=== PATIENT | male | born 1995 | race Caucasian/White ===

== ENCOUNTER 2018-09-28 13:23 | Inpatient (IN) | payer MEDICAID ==
[~2018-09-28] VITALS: Ht 175.3 cm; Wt 67.0 kg
[~2018-09-28 13:23] MED LIST: AMOX-580 PO; INSU100V36 SQ; LACTC PO; LAMO25TA5 PO; LANTUS SUBCUT; LORA2TAB96 PO; TRAZ150T78 PO; VENL37.589 PO; VENL75TA90 PO
[2018-09-28] MEDS ORDERED: normal saline 1000ml 1,000 ML IV ONE (13:45)
[2018-09-28] MEDS ORDERED: INSU100V9 SQ (14:05)
[2018-09-28] MEDS: normal saline 1000ml 1,000 ML IV SCH (14:08)
[2018-09-28] MEDS ORDERED: acetaminophen 325mg tablet PO PRN ×2 (14:10)
[2018-09-28] MEDS ORDERED: potassium Cl 20 mEq SR tablet PO PRN ×2 (14:10)
[2018-09-28] MEDS ORDERED: magnesium 4gm in 100ml NS 100 ML IV PRN (14:10)
[2018-09-28] MEDS ORDERED: ondansetron/PF 4mg/2ml inj IV PRN (14:10)
[2018-09-28] MEDS ORDERED: potassium Cl 40MEQ/NS 500ml 500 ML IV PRN (14:10)
[2018-09-28] MEDS ORDERED: magnesium 2GM in 50ml NS 50 ML IV PRN (14:10)
[2018-09-28] MEDS ORDERED: magnesium Cl slow-release 64mg tablet PO PRN (14:10)
[2018-09-28] MEDS ORDERED: MESSAGE TO PHARMACY PO ONE ×2 (14:10→16:05)
[2018-09-28] MEDS ORDERED: magnesium hydroxide 30ml (MOM) UD suspension PO PRN (14:10)
[2018-09-28] MEDS ORDERED: mag hydrox/Alum hydrox/simeth 30ml oral suspension PO PRN (14:10)
[2018-09-28] MEDS ORDERED: normal saline 1000ml 1,000 ML IVB ONE ×2 (14:17→16:03)
[2018-09-28 15:18] LABS: CLARITY,URINE CLEAR (Clear); COLOR,URINE YELLOW (Yellow); GLUCOSE, URINE 500 mg/dl (Neg); KETONES,URINE >=80 mg/dl (Neg); LEUKOCYTE ESTERASE ,URINE NEGATIVE (Neg); NITRITES, URINE NEGATIVE (Neg); OCCULT BLOOD,URINE TRACE-INTACT (Neg); PROTEIN,URINE TRACE mg/dl (Neg); UROBILINOGEN,URINE 0.2 E.U/dL (0.2-1.0)
[2018-09-28 15:21] LABS: UA COLLECTION TYPE CLN CATCH MIDSTREAM
[2018-09-28 15:23] LABS: BACTERIA,URINE NONE SEEN /HPF (Neg); RBC,URINE 0-2 /HPF (0-2); SQUAMOUS EPITHELIAL CELL,UR FEW /LPF (FEW); WBC,URINE 0-4 /HPF (0-4)
[2018-09-28 15:28] VITALS: BP 153/90
--- NOTE | 2018-09-28 15:28 | NUR ---
Patient on the unit, Dr. Lau at bedside.
[2018-09-28 15:30] LABS: MUCUS STRANDS NONE SEEN /LPF (Neg); TRANSITIONAL EPI CELLS,URINE FEW /HPF
[2018-09-28] MEDS ORDERED: normal saline 1000ml 1,000 ML IV SCH (15:38)
[2018-09-28 15:43] VITALS: BP 145/59
--- NOTE | 2018-09-28 16:00 | NUR ---
Bladder scanned 462. Pt voided 250 afterwards.
[2018-09-28] MEDS ORDERED: dextrose 50%-water 50ml dispensing syringe IV PRN ×2 (16:05)
[2018-09-28] MEDS ORDERED: glucagon, human recombinant 1mg kit SUBCUT PRN (16:05)
[2018-09-28] MEDS ORDERED: CefTRIAXone/D5W-Rocephin 1gm 50 ML IV ONE (16:05)
[2018-09-28] MEDS ORDERED: dextrose ORAL solution 15 GM/59 ML bottle PO PRN ×2 (16:05)
[2018-09-28] MEDS ORDERED: proMETHazine 25mg tablet PO PRN (16:15)
[2018-09-28 16:59] LABS: BASOPHILS % (AUTO) 0.2 % (0-1); EOSINOPHILS % (AUTO) 0 % (0-6); HEMATOCRIT 39.7 % (42.0-52.0); HEMOGLOBIN 13.3 g/dl (14.0-17.9); LYMPHOCYTES # (AUTO) 0.9 X10'3 (1.1-4.8); LYMPHOCYTES % (AUTO) 5.9 % (21-51); MEAN CORPUSCULAR HEMOGLOBIN 28.1 PG (27.0-31.0); MEAN CORPUSCULAR HGB CONC 33.5 g/dL (33.0-36.5); MEAN CORPUSCULAR VOLUME 83.9 FL (78-98); MEAN PLATELET VOLUME 9.1 FL (7.4-10.4); MONOCYTES # (AUTO) 1.6 X10'3 (0-0.9); MONOCYTES % (AUTO) 10.1 % (2-12); NEUTROPHILS # (AUTO) 12.9 X10'3 (1.8-7.7); NEUTROPHILS % (AUTO) 83.8 % (42-75); PLATELET COUNT 245 X10'3 (140-440); RED BLOOD COUNT 4.73 X10'6 (4.70-6.10); WHITE BLOOD COUNT 15.4 X10'3 (4.5-11.0)
[2018-09-28] MEDS ORDERED: thiamine inj. 100 MG in normal saline 100ml IV soln 100 ML IV SCH (17:00)
[2018-09-28] MEDS ORDERED: magnesium 2GM in 50ml NS 50 ML IV SCH (17:00)
--- NOTE | 2018-09-28 17:00 | NUR ---
pt bladder scanned again. 524 in shown bladder. pt. voided 350 ml afterwards.
[2018-09-28] MEDS: proCHLORperazine 10 MG/2 ml inj IV PRN (17:04)
[2018-09-28 17:07] LABS: ALBUMIN 3.6 G/DL (3.4-5.0); ANION GAP 13 (8-16); BLOOD UREA NITROGEN 26 MG/DL (7-18); BUN/CREATININE RATIO 23.2 (5.4-32.0); CHLORIDE 99 MMOL/L (99-107); CREATININE 1.12 MG/DL (0.60-1.10); GLUCOSE 350 MG/DL (70-104); LIPASE < 50 U/L (73-393); POTASSIUM 3.6 MMOL/L (3.5-5.1); SODIUM 140 MMOL/L (135-145); TOTAL CARBON DIOXIDE 28.1 MMOL/L (24-32); eGFR 81 ML/MIN
[2018-09-28] MEDS ORDERED: insulin glargine (Lantus) pen - multi-dose SQ ONE ×3 (19:05→19:50)
--- NOTE | 2018-09-28 19:11 | NUR ---
Patient in room [facility]. I have received report from Sharda PROCTOR and had the opportunity to ask questions and assume patient care.
[2018-09-28] MEDS: LORazepam 2 mg/ml vial IV PRN (19:47)
[2018-09-28 20:00] VITALS: BP 125/56
[2018-09-28 20:14] LABS: MAGNESIUM 1.7 MG/DL (1.5-2.4)
[2018-09-28] MEDS ORDERED: ESOMEPRAZOLE 40 MG VIAL IV SCH (20:22)
[2018-09-28] MEDS ORDERED: insulin glargine (Lantus) pen - multi-dose SQ SCH (21:00)
[2018-09-28] MEDS: insulin Lispro (HumaLOG) vial - multi-dose SQ SCH ×2 (21:41→23:27)
[2018-09-28] MEDS: MVI, adult No.4 with vit. K 10 ML in dextrose 5% water 500ml 490 ML IV SCH ×2 (22:51)
[2018-09-29] MEDS: normal saline 1000ml 1,000 ML IV SCH ×3 (00:45→10:45)
[2018-09-29 00:58] VITALS: BP 113/67
[2018-09-29 01:14] LABS: ALBUMIN 3.2 G/DL (3.4-5.0); ANION GAP 11 (8-16); BLOOD UREA NITROGEN 19 MG/DL (7-18); BUN/CREATININE RATIO 19.6 (5.4-32.0); CALCIUM 7.4 MG/DL (8.5-10.1); CHLORIDE 103 MMOL/L (99-107); CREATININE 0.97 MG/DL (0.60-1.10); GLUCOSE 305 MG/DL (70-104); MAGNESIUM 1.9 MG/DL (1.5-2.4); PHOSPHORUS 2.4 MG/DL (2.3-4.5); POTASSIUM 3.5 MMOL/L (3.5-5.1); SODIUM 142 MMOL/L (135-145); TOTAL CARBON DIOXIDE 27.9 MMOL/L (24-32); eGFR > 90 ML/MIN
[2018-09-29] MEDS: insulin Lispro (HumaLOG) vial - multi-dose SQ SCH ×7 (02:06→20:50)
[2018-09-29] MEDS: proCHLORperazine 10 MG/2 ml inj IV PRN (02:07)
--- NOTE | 2018-09-29 04:26 | NUR ---
Pt Magnesium at admit was 1.7, repeat Magnesium at 0000 was 1[address]9. Paged [address] Martin regarding whether or not to administer with no response. Discussed ordered magnesium replacement order that was non-protocol with charge nurse. Medication not administered due to magnesium level being within limits.
[2018-09-29 06:10] LABS: BASOPHILS % (AUTO) 0.2 % (0-1); EOSINOPHILS % (AUTO) 0 % (0-6); HEMATOCRIT 35.3 % (42.0-52.0); HEMOGLOBIN 12.1 g/dl (14.0-17.9); LYMPHOCYTES # (AUTO) 1.1 X10'3 (1.1-4.8); LYMPHOCYTES % (AUTO) 9.5 % (21-51); MEAN CORPUSCULAR HEMOGLOBIN 28.6 PG (27.0-31.0); MEAN CORPUSCULAR HGB CONC 34.3 g/dL (33.0-36.5); MEAN CORPUSCULAR VOLUME 83.4 FL (78-98); MEAN PLATELET VOLUME 8.9 FL (7.4-10.4); MONOCYTES # (AUTO) 1.5 X10'3 (0-0.9); MONOCYTES % (AUTO) 13.1 % (2-12); NEUTROPHILS # (AUTO) 8.9 X10'3 (1.8-7.7); NEUTROPHILS % (AUTO) 77.2 % (42-75); PLATELET COUNT 217 X10'3 (140-440); RED BLOOD COUNT 4.23 X10'6 (4.70-6.10); RED CELL DISTRIBUTION WIDTH 13.6 % (11.5-14.5); WHITE BLOOD COUNT 11.5 X10'3 (4.5-11.0)
--- NOTE | 2018-09-29 06:16 | NUR ---
Problems reprioritized. Patient report given, questions answered & plan of care reviewed with Zo PROCTOR.
--- NOTE | 2018-09-29 06:18 | NUR ---
Patient in room [facility]. I have received report from Monika PROCTOR and had the opportunity to ask questions and assume patient care.
[2018-09-29 06:24] LABS: ALBUMIN 3.1 G/DL (3.4-5.0); ANION GAP 10 (8-16); BLOOD UREA NITROGEN 16 MG/DL (7-18); BUN/CREATININE RATIO 18.2 (5.4-32.0); CALCIUM 7.8 MG/DL (8.5-10.1); CHLORIDE 104 MMOL/L (99-107); CREATININE 0.88 MG/DL (0.60-1.10); GLUCOSE 236 MG/DL (70-104); MAGNESIUM 2.1 MG/DL (1.5-2.4); PHOSPHORUS 1.9 MG/DL (2.3-4.5); POTASSIUM 3.4 MMOL/L (3.5-5.1); SODIUM 141 MMOL/L (135-145); TOTAL CARBON DIOXIDE 27.2 MMOL/L (24-32); eGFR > 90 ML/MIN
[2018-09-29 07:00] VITALS: BP 134/77
[2018-09-29 08:00] VITALS: BP_SYST 134; BP_SYST 139; BP_SYST 141; BP_DIAS 77; BP_DIAS 85; BP_DIAS 88
[2018-09-29] MEDS: K and/or MAG REPLACEMENT MC SCH (08:00)
[2018-09-29] MEDS: LORazepam 2 mg/ml vial IV PRN (08:12)
[2018-09-29] MEDS: ESOMEPRAZOLE 40 MG VIAL IV SCH ×2 (08:18→20:55)
[2018-09-29] MEDS: CefTRIAXone 2gm/D5W 50ml 50 ML IV SCH (08:31)
[2018-09-29] MEDS: enoxaparin 40mg/0.4ml syringe SQ SCH (08:31)
[2018-09-29] MEDS: potassium CL 10mEq/100ml bag 100 ML IV PRN ×4 (09:04→13:32)
[2018-09-29] MEDS ORDERED: sodium phosphate inj. 30 MMOL in dextrose 5%-water 250 ML IV ONE (10:15)
[2018-09-29 11:00] VITALS: BP 150/83
[2018-09-29] MEDS ORDERED: LORazepam 2 mg/ml vial IV PRN (12:25)
[2018-09-29] MEDS ORDERED: HYDROcodone/acetaminophen 5mg/325mg tablet PO PRN (12:25)
[2018-09-29] MEDS: HYDROcodone/acetaminophen 10/325mg tab PO PRN ×2 (12:33→17:45)
--- NOTE | 2018-09-29 14:02 | NUR ---
DM/Malnutrition consults: Pt admit w/ severe dehydration, intractable N/V, possibly DM gastroparesis and infection per MD note. Noted pt does use marijuana daily; unsure if also synthetic cannabinoid hyperemesis influence as well? Pt hx T1DM since 9 y/o non-compliant A1C 11.4. Pt also hx pancreatitis but lipase <50 this admit. Still experiencing N/V today per EMR. Pt will need written DM education prior to d/c once stable. At this time pt has no significant wt loss hx from prior admit February 2018, no significant weakness or edema present and does not qualify for malnutrition at this time. Advanced to clear liquids w/ PO pending. Will continue to monitor. Rec: 1. advance diet per MD to carb controlled 2. MVI/thiamin per MD 3. DM ed once stable prior to d/c 4. weekly wts Addendum: 09/29/18 at [address] Amended: Links added.
[2018-09-29] MEDS: MVI, adult No.4 with vit. K 10 ML in dextrose 5% water 500ml 490 ML IV SCH ×2 (17:35)
--- NOTE | 2018-09-29 18:45 | NUR ---
Problems reprioritized. Patient report given, questions answered & plan of care reviewed with CULLEN ward.
[2018-09-29 20:00] VITALS: BP 139/81
[2018-09-29] MEDS: lactobacillus rhamnosus 10,000 MMU CELLS/CAPSULE PO SCH (20:55)
[2018-09-29] MEDS ORDERED: insulin glargine (Lantus) pen - multi-dose SQ ONE (21:00)
[2018-09-30 00:23] VITALS: BP 143/88
[2018-09-30] MEDS: normal saline 1000ml 1,000 ML IV SCH ×2 (00:37→11:50)
[2018-09-30] MEDS: HYDROcodone/acetaminophen 10/325mg tab PO PRN ×2 (04:29→11:46)
[2018-09-30 04:56] LABS: BASOPHILS % (AUTO) 0.6 % (0-1); EOSINOPHILS % (AUTO) 0.4 % (0-6); HEMATOCRIT 39.5 % (42.0-52.0); HEMOGLOBIN 13.3 g/dl (14.0-17.9); LYMPHOCYTES # (AUTO) 2.2 X10'3 (1.1-4.8); LYMPHOCYTES % (AUTO) 29.2 % (21-51); MEAN CORPUSCULAR HEMOGLOBIN 28.2 PG (27.0-31.0); MEAN CORPUSCULAR HGB CONC 33.6 g/dL (33.0-36.5); MEAN CORPUSCULAR VOLUME 83.8 FL (78-98); MEAN PLATELET VOLUME 8.9 FL (7.4-10.4); MONOCYTES # (AUTO) 1.1 X10'3 (0-0.9); MONOCYTES % (AUTO) 14.1 % (2-12); NEUTROPHILS # (AUTO) 4.2 X10'3 (1.8-7.7); NEUTROPHILS % (AUTO) 55.7 % (42-75); PLATELET COUNT 218 X10'3 (140-440); RED BLOOD COUNT 4.72 X10'6 (4.70-6.10); RED CELL DISTRIBUTION WIDTH 13.3 % (11.5-14.5); WHITE BLOOD COUNT 7.5 X10'3 (4.5-11.0)
[2018-09-30 05:20] LABS: ALBUMIN 3.3 G/DL (3.4-5.0); ANION GAP 11 (8-16); BLOOD UREA NITROGEN 9 MG/DL (7-18); BUN/CREATININE RATIO 12.7 (5.4-32.0); CALCIUM 8.3 MG/DL (8.5-10.1); CHLORIDE 100 MMOL/L (99-107); CREATININE 0.71 MG/DL (0.60-1.10); GLUCOSE 197 MG/DL (70-104); PHOSPHORUS 1.7 MG/DL (2.3-4.5); POTASSIUM 3.6 MMOL/L (3.5-5.1); SODIUM 136 MMOL/L (135-145); eGFR > 90 ML/MIN
--- NOTE | 2018-09-30 06:23 | NUR ---
Problems reprioritized. Patient report given, questions answered & plan of care reviewed with Maria G PROCTOR.
--- NOTE | 2018-09-30 06:38 | NUR ---
Patient in room [facility]. I have received report from Monika PROCTOR and had the opportunity to ask questions and assume patient care.
[2018-09-30 07:02] VITALS: BP 143/93
[2018-09-30] MEDS: K and/or MAG REPLACEMENT MC SCH (08:00)
[2018-09-30] MEDS: ESOMEPRAZOLE 40 MG VIAL IV SCH (08:29)
[2018-09-30] MEDS: CefTRIAXone 2gm/D5W 50ml 50 ML IV SCH (08:31)
[2018-09-30] MEDS: lactobacillus rhamnosus 10,000 MMU CELLS/CAPSULE PO SCH (08:31)
[2018-09-30] MEDS: enoxaparin 40mg/0.4ml syringe SQ SCH (08:32)
[2018-09-30] MEDS: insulin Lispro (HumaLOG) vial - multi-dose SQ SCH ×2 (08:44→12:56)
[2018-09-30 11:00] VITALS: BP 143/79
[2018-09-30] MEDS: MVI, adult No.4 with vit. K 10 ML in dextrose 5% water 500ml 490 ML IV SCH ×2 (15:23)
--- NOTE | 2018-09-30 16:03 | NUR ---
DM consult, A1c 11.4 previous A1C in February 2018 was 8.3; patient seen at bedside and given written DM education handout with verbal review and referral to outpatient Saturday morning DM education class. Patient reports that he lives in [place] and is working with his PCP to gain referral to an cookie breaker in the [facility]. Discussed current A1c and A1c history. Encouraged attendance to the DM education class. Patient reports that he was having difficulty last fall and has since started seeing a psychiatrist for mental health. Will continue to follow. Addendum: 09/30/18 at [address] Amended: Links added.
[2018-09-30] MEDS ORDERED: MULT1TAB74 PO (16:35)
[2018-09-30] MEDS ORDERED: LACT1CAP26 PO (16:37)
[2018-09-30] MEDS ORDERED: FAMO-128 PO (16:37)
[2018-09-30] MEDS ORDERED: INSU100V9 SQ (16:37)
[2018-09-30] MEDS ORDERED: CEFD300C3 PO (16:37)
--- NOTE | 2018-09-30 17:29 | NUR ---
Patient discharged on nursing end. Waiting on ride. Patient is requesting a work release note, lyric GUTHRIE.
== END 2018-09-30 18:00 | disposition home or self-care (01) | DRG 422 ==
LOC: ER 13:24 → SUR 3N 14:43 → CMPBEDREQ 09-29 19:40
PROVIDERS: ADMIT Hospitalist; ATTEND Hospitalist
DX: E86.0 Dehydration (principal); E10.65 Type 1 diabetes mellitus with hyperglycemia; E83.39 Other disorders of phosphorus metabolism; E87.6 Hypokalemia; F12.90 Cannabis use, unspecified, uncomplicated; F41.9 Anxiety disorder, unspecified; F17.210 Nicotine dependence, cigarettes, uncomplicated; F32.9 Major depressive disorder, single episode, unspecified; R19.7 Diarrhea, unspecified; Z83.3 Family history of diabetes mellitus; Z90.49 Acquired absence of other specified parts of digestive tract; Z88.8 Allergy status to other drugs, medicaments and biological substances; Z71.51 Drug abuse counseling and surveillance of drug abuser
CPT/HCPCS: 36415; 80048; 81001; 82948; 83036; 83605; 83690; 83735; 84100; 85025; 87040; 87070; 96360; 99285; G0378; J0696; J0780; J1650; J1815; J2060; J2405; J3411; J3475; J3480; J7030; J7060

== ENCOUNTER 2019-11-04 02:09 | Inpatient (IN) | payer MEDICAID ==
[2019-11-04] VITALS (7 sets, daily range): BP systolic 99–155; BP diastolic 51–86
[~2019-11-04] VITALS: Ht 185.4 cm; Wt 68.2 kg
[~2019-11-04 02:09] MED LIST changes: -AMOX-580 PO; +ARIP10TA15 PO; +ATOM25CA6 PO; +CLON-527 PO; +FAMO-128 PO; +HYDR-3686 PO; +INSU100V9 SQ; +LACT1CAP26 PO; -LACTC PO; -LAMO25TA5 PO; -LANTUS SUBCUT; -LORA2TAB96 PO; +MULT-620 PO; -TRAZ150T78 PO; -VENL37.589 PO; -VENL75TA90 PO; +ZOLP10TA PO; +ZOLP5TAB8 PO
[2019-11-04] MEDS ORDERED: normal saline 1000ml 1,000 ML IV SCH (02:16)
[2019-11-04] MEDS ORDERED: sodium bicarbonate (8.4%) inj. 50 MEQ in dextrose 5% water 500ml 250 ML IV PRN ×2 (02:16→02:50)
[2019-11-04] MEDS ORDERED: Insulin Reg/NS 100units/100mL 100 ML IV SCH ×5 (02:16→20:43)
[2019-11-04] MEDS ORDERED: sodium bicarbonate (8.4%) inj. 100 MEQ in dextrose 5% water 500ml 500 ML IV PRN ×2 (02:16→02:50)
[2019-11-04] MEDS ORDERED: potassium CL 20mEq in D5-1/2NS 1,000 ML IV PRN (02:16)
[2019-11-04] MEDS ORDERED: Neutra Phos packet PO PRN (02:20)
[2019-11-04] MEDS ORDERED: sodium phosphate inj. 30 MMOL in dextrose 5%-water 250 ML IV PRN (02:20)
[2019-11-04] MEDS ORDERED: potassium CL 10mEq/100ml bag 100 ML IV PRN ×4 (02:20→02:50)
[2019-11-04] MEDS ORDERED: LORazepam 2 mg/ml vial IV ONE (02:20)
[2019-11-04] MEDS ORDERED: sodium phosphate inj. 15 MMOL in dextrose 5%-water 250 ML IV PRN (02:20)
[2019-11-04] MEDS ORDERED: haloperidol lactate 5mg/ml inj IM ONE (02:20)
[2019-11-04] MEDS ORDERED: diphenhydrAMINE 50 mg/ml inj IV ONE (02:20)
[2019-11-04] MEDS ORDERED: insulin regular, human U-100 3ml vial - multi-dose IV PRN ×2 (02:20→02:50)
[2019-11-04] MEDS ORDERED: potassium Cl 20 mEq SR tablet PO PRN ×4 (02:20→02:50)
[2019-11-04 02:35] LABS: ABG BASE EXCESS -3.1 mmol/L (-2.0-2.0); ABG HCO3 21.5 mmol/L (22.0-26.0); ABG OXYGEN SATURATION 90.3 % (94-97); ABG PCO2 (T) 36.8 mmHg (35.0-48.0); ABG PO2 (T) 61.5 mmHg (75.0-100.0); FCOHb 0.4 % (0.0-3.9); FMetHb 0.3 % (0.0-1.5); FO2Hb 89.7 % (94-97); PATIENT TEMPERATURE 36.9; TOTAL HEMOGLOBIN 13.9 G/dl (14.0-18.0)
[2019-11-04] MEDS ORDERED: magnesium Cl slow-release 64mg tablet PO PRN (02:50)
[2019-11-04] MEDS: normal saline 1000ml 1,000 ML IV SCH ×4 (02:50→06:26)
[2019-11-04] MEDS ORDERED: acetaminophen 325mg tablet PO PRN (02:50)
[2019-11-04] MEDS ORDERED: magnesium 4gm in 100ml NS 100 ML IV PRN (02:50)
[2019-11-04] MEDS ORDERED: magnesium 2GM in 50ml NS 50 ML IV PRN (02:50)
[2019-11-04] MEDS ORDERED: magnesium hydroxide 30ml (MOM) UD suspension PO PRN (02:50)
[2019-11-04] MEDS ORDERED: mag hydrox/Alum hydrox/simeth 30ml oral suspension PO PRN (02:50)
[2019-11-04 02:52] LABS: ALBUMIN 3.8 G/DL (3.4-5.0); ANION GAP 18 (8-16); BLOOD UREA NITROGEN 24 MG/DL (7-18); BUN/CREATININE RATIO 15.4 (5.4-32.0); CHLORIDE 104 MMOL/L (99-107); CREATININE 1.56 MG/DL (0.60-1.10); GLUCOSE 342 MG/DL (70-104); PHOSPHORUS 2.7 MG/DL (2.3-4.5); SODIUM 147 MMOL/L (135-145); TOTAL CARBON DIOXIDE 24.7 MMOL/L (24-32); eGFR 54 ML/MIN
--- NOTE | 2019-11-04 04:28 | NUR ---
Patient in room ED 4. I have received report from Charito PROCTOR and had the opportunity to ask questions and assume patient care. Addendum: 11/04/19 at 0428 by Sharee Vick RN Awaiting arrival of patient to the PCU unit.
--- NOTE | 2019-11-04 04:40 | NUR ---
Patient arrived to the PCU unit at this time from the ER. He is very drowsy from the Benadryl and Ativan that he received in the ER. He is oriented but keeps falling asleep and must be aroused between questions and gives minimal answers. His vitals are stable. He is on room air. He currently has an insulin drip going at 5units/hr and NS going at 250mls/hr. He has his call light in reach and all safety precautions are in place. Will continue to monitor patient.
[2019-11-04] MEDS ORDERED: LORazepam 2 mg/ml vial IV PRN (05:30)
[2019-11-04 06:21] LABS: ALBUMIN 3.4 G/DL (3.4-5.0); ANION GAP 13 (8-16); BLOOD UREA NITROGEN 23 MG/DL (7-18); BUN/CREATININE RATIO 16.5 (5.4-32.0); CALCIUM 8.1 MG/DL (8.5-10.1); CHLORIDE 111 MMOL/L (99-107); CREATININE 1.39 MG/DL (0.60-1.10); GLUCOSE 262 MG/DL (70-104); PHOSPHORUS 1.7 MG/DL (2.3-4.5); POTASSIUM 3.8 MMOL/L (3.5-5.1); SODIUM 148 MMOL/L (135-145); TOTAL CARBON DIOXIDE 24.3 MMOL/L (24-32); eGFR 62 ML/MIN
[2019-11-04] MEDS: potassium CL 20mEq in D5-1/2NS 1,000 ML IV PRN ×4 (06:21→22:16)
--- NOTE | 2019-11-04 06:23 | NUR ---
Problems reprioritized. Patient report given, questions answered & plan of care reviewed with Lesa PROCTOR.
--- NOTE | 2019-11-04 07:30 | NUR ---
Patient in room PCU 3021. I have received report from Sharee PROCTOR and had the opportunity to ask questions and assume patient care.
[2019-11-04] MEDS ORDERED: K and/or MAG REPLACEMENT MC SCH (08:00)
[2019-11-04] MEDS: K and/or MAG REPLACEMENT MC SCH ×2 (08:00→19:23)
[2019-11-04] MEDS: ondansetron/PF 4mg/2ml inj IV PRN ×2 (10:18→16:50)
[2019-11-04 10:24] LABS: BASOPHILS % (AUTO) 0.2 % (0-1); EOSINOPHILS % (AUTO) 0 % (0-6); HEMATOCRIT 37.6 % (42.0-52.0); HEMOGLOBIN 12.5 g/dl (14.0-17.9); LYMPHOCYTES # (AUTO) 1.7 X10'3 (1.1-4.8); LYMPHOCYTES % (AUTO) 9.9 % (21-51); MEAN CORPUSCULAR HEMOGLOBIN 28.8 PG (27.0-31.0); MEAN CORPUSCULAR HGB CONC 33.3 g/dL (33.0-36.5); MEAN CORPUSCULAR VOLUME 86.5 FL (78-98); MEAN PLATELET VOLUME 8.9 FL (7.4-10.4); MONOCYTES # (AUTO) 1.4 X10'3 (0-0.9); MONOCYTES % (AUTO) 8.4 % (2-12); NEUTROPHILS # (AUTO) 13.7 X10'3 (1.8-7.7); NEUTROPHILS % (AUTO) 81.5 % (42-75); PLATELET COUNT 282 X10'3 (140-440); RED BLOOD COUNT 4.34 X10'6 (4.70-6.10); RED CELL DISTRIBUTION WIDTH 13.1 % (11.5-14.5); WHITE BLOOD COUNT 16.8 X10'3 (4.5-11.0)
[2019-11-04] MEDS ORDERED: ARIP400S3 SQ (10:30)
[2019-11-04] MEDS ORDERED: DIAZ10TA5 PO (10:30)
[2019-11-04 10:40] LABS: ALANINE AMINOTRANSFERASE 23 U/L (12-78); ALBUMIN 3.2 G/DL (3.4-5.0); ALBUMIN/GLOBULIN RATIO 1.3 (1.1-1.5); ALKALINE PHOSPHATASE 61 IU/L (46-116); ANION GAP 7 (8-16); ASPARTATE AMINO TRANSFERASE 15 U/L (10-37); BILIRUBIN,TOTAL 0.4 MG/DL (0.1-1.0); BLOOD UREA NITROGEN 20 MG/DL (7-18); BUN/CREATININE RATIO 15.2 (5.4-32.0); CALCIUM 7.8 MG/DL (8.5-10.1); CHLORIDE 114 MMOL/L (99-107); CREATININE 1.32 MG/DL (0.60-1.10); GLUCOSE 142 MG/DL (70-104); PHOSPHORUS 2.4 MG/DL (2.3-4.5); POTASSIUM 3.6 MMOL/L (3.5-5.1); SODIUM 150 MMOL/L (135-145); TOTAL CARBON DIOXIDE 29.5 MMOL/L (24-32); TOTAL PROTEIN 5.6 G/DL (6.4-8.2); eGFR 66 ML/MIN
--- NOTE | 2019-11-04 11:31 | NUR ---
PAGER ID: [phone] MESSAGE: [phone] Salo Wayne. Can you call regarding blood sugars/lab value update? Lesa PROCTOR
--- NOTE | 2019-11-04 12:01 | NUR ---
PAGER ID: [phone] MESSAGE: [phone] Crimes, Salo. Lunch is coming, patient feels he is able to eat now. Can he eat? Blood sugar 122. Lab results are in. Lesa PROCTOR [id number]
--- NOTE | 2019-11-04 12:15 | NUR ---
Received new orders to start patient on clear liquids as he declines nausea/vomiting, ABD pain. Pt. is more alert and feels he is able to eat. Dr. Tim did not want to bolus him with insulin prior to eating clears. Blood sugar was 122 and he is aware of labs and trends. Dr. Tim also decreased insulin to 3 unit/hr and to continue current fluids. Will continue to monitor patients blood sugar and lab values closely.
[2019-11-04 13:57] LABS: BASOPHILS # (AUTO) 0.1 X10'3 (0-0.2); BASOPHILS % (AUTO) 0.4 % (0-1); EOSINOPHILS % (AUTO) 0 % (0-6); HEMATOCRIT 36.5 % (42.0-52.0); LYMPHOCYTES # (AUTO) 1.7 X10'3 (1.1-4.8); LYMPHOCYTES % (AUTO) 10.4 % (21-51); MEAN CORPUSCULAR HEMOGLOBIN 28.6 PG (27.0-31.0); MEAN CORPUSCULAR VOLUME 86.7 FL (78-98); MEAN PLATELET VOLUME 8.8 FL (7.4-10.4); MONOCYTES # (AUTO) 1.5 X10'3 (0-0.9); MONOCYTES % (AUTO) 9.1 % (2-12); NEUTROPHILS # (AUTO) 12.9 X10'3 (1.8-7.7); NEUTROPHILS % (AUTO) 80.1 % (42-75); PLATELET COUNT 255 X10'3 (140-440); RED BLOOD COUNT 4.21 X10'6 (4.70-6.10); RED CELL DISTRIBUTION WIDTH 13.6 % (11.5-14.5); WHITE BLOOD COUNT 16.1 X10'3 (4.5-11.0)
[2019-11-04] MEDS ORDERED: ATOM40CA7 PO (13:59)
[2019-11-04 14:05] LABS: ALANINE AMINOTRANSFERASE 23 U/L (12-78); ALBUMIN 3.1 G/DL (3.4-5.0); ALBUMIN/GLOBULIN RATIO 1.3 (1.1-1.5); ALKALINE PHOSPHATASE 58 IU/L (46-116); ANION GAP 9 (8-16); ASPARTATE AMINO TRANSFERASE 18 U/L (10-37); BILIRUBIN,TOTAL 0.6 MG/DL (0.1-1.0); BLOOD UREA NITROGEN 18 MG/DL (7-18); BUN/CREATININE RATIO 15.8 (5.4-32.0); CALCIUM 7.6 MG/DL (8.5-10.1); CHLORIDE 109 MMOL/L (99-107); CREATININE 1.14 MG/DL (0.60-1.10); GLUCOSE 182 MG/DL (70-104); POTASSIUM 3.9 MMOL/L (3.5-5.1); SODIUM 145 MMOL/L (135-145); TOTAL CARBON DIOXIDE 27.1 MMOL/L (24-32); TOTAL PROTEIN 5.4 G/DL (6.4-8.2); eGFR 78 ML/MIN
--- NOTE | 2019-11-04 14:13 | NUR ---
Patient ate at 1330, no symptoms reported after eating. Patients labs are corrected. Will repeat in 4 hrs and stop gtt in an hr. Hyperglycemic protocol orders entered.
[2019-11-04] MEDS ORDERED: glucagon, human recombinant 1mg kit SUBCUT PRN ×2 (14:30→19:15)
[2019-11-04] MEDS ORDERED: insulin Lispro (HumaLOG) vial - multi-dose SQ SCH (14:30)
[2019-11-04] MEDS ORDERED: dextrose ORAL solution 15 GM/59 ML bottle PO PRN ×4 (14:30→19:15)
[2019-11-04] MEDS ORDERED: dextrose 50%-water 50ml dispensing syringe IV PRN ×4 (14:30→19:15)
--- NOTE | 2019-11-04 15:00 | NUR ---
PAGER ID: [phone] MESSAGE: [phone] Salo Natarajan - Pt. denies symptoms after eating. Patients labs are corrected. Hyperglycemic protocol orders entered. Can we advance to regular carb controlled diet for dinner? Lesa PROCTOR [id number]
--- NOTE | 2019-11-04 15:50 | NUR ---
Blood sugar was 233, notified with orders to recheck in 1 more hr and continue current regimen. Pt. stated he is feeling better and wants to take a shower. Informed patient that I would be rechecking his blood glucose in an hour and that he is not safe to shower at the moment.
--- NOTE | 2019-11-04 16:35 | NUR ---
PAGER ID: [phone] MESSAGE: [phone] Salo Rosa Isela - Recheck of blood sugar was 181, do you want to continue 3 units/hr or 5 units/hr? Also, he vomited about 50cc. PRN zofran given. Lesa PROCTOR [id number]
--- NOTE | 2019-11-04 16:37 | NUR ---
MD returned call stating to continue patient on the 3 units/hr and make patient NPO again since he vomited. Awaiting repeat labs at this time.
--- NOTE | 2019-11-04 18:19 | NUR ---
Problems reprioritized. Patient report given, questions answered & plan of care reviewed with Michael PROCTOR. test technician at bedside drawing lab, pt. denies nausea or discomfort at this time. Resting comfortably.
--- NOTE | 2019-11-04 18:21 | NUR ---
Patient in room PCU 3021. I have received report from Lesa PROCTOR and had the opportunity to ask questions and assume patient care.
[2019-11-04 18:49] LABS: ALANINE AMINOTRANSFERASE 24 U/L (12-78); ALBUMIN 3.2 G/DL (3.4-5.0); ALBUMIN/GLOBULIN RATIO 1.3 (1.1-1.5); ALKALINE PHOSPHATASE 59 IU/L (46-116); ANION GAP 5 (8-16); ASPARTATE AMINO TRANSFERASE 19 U/L (10-37); BILIRUBIN,TOTAL 0.5 MG/DL (0.1-1.0); BLOOD UREA NITROGEN 15 MG/DL (7-18); BUN/CREATININE RATIO 13.5 (5.4-32.0); CALCIUM 8.1 MG/DL (8.5-10.1); CHLORIDE 108 MMOL/L (99-107); CREATININE 1.11 MG/DL (0.60-1.10); GLUCOSE 177 MG/DL (70-104); POTASSIUM 3.7 MMOL/L (3.5-5.1); SODIUM 142 MMOL/L (135-145); TOTAL CARBON DIOXIDE 28.8 MMOL/L (24-32); TOTAL PROTEIN 5.6 G/DL (6.4-8.2); eGFR 81 ML/MIN
[2019-11-04] MEDS ORDERED: MESSAGE TO PHARMACY PO ONE (19:15)
--- NOTE | 2019-11-04 20:44 | NUR ---
Spoke with Dr. Crowley regarding pt not eating and DKA resolution, received order to decrease insulin gtt to 1 unit/hr.
--- NOTE | 2019-11-04 20:44 | NUR ---
Page Sent PAGER ID: [phone] MESSAGE: pt Salo Natarajan in [id number] 24 y/o male DKA. pt has corrected, but will not eat, per our protocol insulin gtt is stopped when pt eats and covered w/ Humalog subQ. BG is 135 pt on D5 1/2 NS w/ 20 meq KCL 250ml/hr, insulin 3u/hr- Michael [id number]
[2019-11-04] MEDS: insulin glargine (Lantus) pen - multi-dose SQ SCH (21:00)
[2019-11-04] MEDS ORDERED: insulin glargine (Lantus) pen - multi-dose SQ SCH (21:00)
[2019-11-04 23:06] LABS: ALANINE AMINOTRANSFERASE 15 U/L (12-78); ALBUMIN/GLOBULIN RATIO 1.3 (1.1-1.5); ALKALINE PHOSPHATASE 56 IU/L (46-116); ANION GAP 7 (8-16); ASPARTATE AMINO TRANSFERASE 17 U/L (10-37); BILIRUBIN,TOTAL 0.5 MG/DL (0.1-1.0); BLOOD UREA NITROGEN 12 MG/DL (7-18); BUN/CREATININE RATIO 12.5 (5.4-32.0); CALCIUM 7.6 MG/DL (8.5-10.1); CHLORIDE 108 MMOL/L (99-107); CREATININE 0.96 MG/DL (0.60-1.10); GLUCOSE 137 MG/DL (70-104); POTASSIUM 3.4 MMOL/L (3.5-5.1); SODIUM 143 MMOL/L (135-145); TOTAL CARBON DIOXIDE 27.7 MMOL/L (24-32); TOTAL PROTEIN 5.3 G/DL (6.4-8.2); eGFR > 90 ML/MIN
--- NOTE | 2019-11-04 23:18 | NUR ---
Spoke with Dr. Crowley regarding pts BG 120, insulin gtt at 1 unit/ hr, and d5 1/2 NS w/ 20 KCL at 250 ml/hr. pt still does not want to eat pt denies N/V, education provided to pt about progressing care when he can eat, pt has poor concentration education needs reinforcement, pt lethargic and states he wants to sleep. Received order from Dr. Crowley to stop insulin gtt and keep current rate of IV fluids.
[2019-11-05] MEDS: ondansetron/PF 4mg/2ml inj IV PRN ×3 (00:16→18:38)
[2019-11-05 01:57] LABS: BASOPHILS # (AUTO) 0.1 X10'3 (0-0.2); BASOPHILS % (AUTO) 0.5 % (0-1); EOSINOPHILS % (AUTO) 0.1 % (0-6); HEMATOCRIT 37.6 % (42.0-52.0); HEMOGLOBIN 12.5 g/dl (14.0-17.9); LYMPHOCYTES # (AUTO) 1.4 X10'3 (1.1-4.8); MEAN CORPUSCULAR HEMOGLOBIN 29.2 PG (27.0-31.0); MEAN CORPUSCULAR HGB CONC 33.1 g/dL (33.0-36.5); MEAN CORPUSCULAR VOLUME 88.1 FL (78-98); MEAN PLATELET VOLUME 8.6 FL (7.4-10.4); MONOCYTES # (AUTO) 0.8 X10'3 (0-0.9); MONOCYTES % (AUTO) 6.6 % (2-12); NEUTROPHILS # (AUTO) 9.5 X10'3 (1.8-7.7); NEUTROPHILS % (AUTO) 80.8 % (42-75); PLATELET COUNT 231 X10'3 (140-440); RED BLOOD COUNT 4.27 X10'6 (4.70-6.10); RED CELL DISTRIBUTION WIDTH 13.5 % (11.5-14.5); WHITE BLOOD COUNT 11.8 X10'3 (4.5-11.0)
[2019-11-05 02:00] VITALS: BP 126/71
[2019-11-05 02:10] LABS: ALANINE AMINOTRANSFERASE 21 U/L (12-78); ALBUMIN 3.1 G/DL (3.4-5.0); ALBUMIN/GLOBULIN RATIO 1.3 (1.1-1.5); ALKALINE PHOSPHATASE 56 IU/L (46-116); ANION GAP 7 (8-16); ASPARTATE AMINO TRANSFERASE 15 U/L (10-37); BILIRUBIN,TOTAL 0.7 MG/DL (0.1-1.0); BLOOD UREA NITROGEN 12 MG/DL (7-18); BUN/CREATININE RATIO 10.8 (5.4-32.0); CALCIUM 7.7 MG/DL (8.5-10.1); CHLORIDE 104 MMOL/L (99-107); CREATININE 1.11 MG/DL (0.60-1.10); GLUCOSE 346 MG/DL (70-104); MAGNESIUM 1.5 MG/DL (1.5-2.4); PHOSPHORUS 2.3 MG/DL (2.3-4.5); POTASSIUM 4.1 MMOL/L (3.5-5.1); SODIUM 138 MMOL/L (135-145); TOTAL CARBON DIOXIDE 27.1 MMOL/L (24-32); TOTAL PROTEIN 5.4 G/DL (6.4-8.2); eGFR 81 ML/MIN
[2019-11-05] MEDS: insulin Lispro (HumaLOG) vial - multi-dose SQ SCH ×5 (03:31→21:00)
--- NOTE | 2019-11-05 06:09 | NUR ---
Problems reprioritized. Patient report given, questions answered & plan of care reviewed with Kristina PROCTOR.
--- NOTE | 2019-11-05 06:16 | NUR ---
Patient in room PCU 3021. I have received report from ESTHELA Rodriguez and had the opportunity to ask questions and assume patient care.
[2019-11-05 06:46] LABS: ALANINE AMINOTRANSFERASE 24 U/L (12-78); ALBUMIN/GLOBULIN RATIO 1.3 (1.1-1.5); ALKALINE PHOSPHATASE 57 IU/L (46-116); ANION GAP 7 (8-16); ASPARTATE AMINO TRANSFERASE 17 U/L (10-37); BILIRUBIN,TOTAL 0.7 MG/DL (0.1-1.0); BLOOD UREA NITROGEN 11 MG/DL (7-18); BUN/CREATININE RATIO 9.6 (5.4-32.0); CALCIUM 8.2 MG/DL (8.5-10.1); CHLORIDE 104 MMOL/L (99-107); CREATININE 1.14 MG/DL (0.60-1.10); GLUCOSE 282 MG/DL (70-104); POTASSIUM 3.6 MMOL/L (3.5-5.1); SODIUM 138 MMOL/L (135-145); TOTAL CARBON DIOXIDE 27.3 MMOL/L (24-32); TOTAL PROTEIN 5.4 G/DL (6.4-8.2); eGFR 78 ML/MIN
[2019-11-05 07:00] VITALS: BP 120/67
[2019-11-05] MEDS: K and/or MAG REPLACEMENT MC SCH ×2 (08:13→19:36)
--- NOTE | 2019-11-05 08:14 | NUR ---
PAGER ID: [phone] MESSAGE: [phone]: Salo Natarajan - Zofran did not help pt nausea, may I have an order for reglan? -Kristina [phone]
--- NOTE | 2019-11-05 08:16 | NUR ---
PAGER ID: [phone] MESSAGE: [phone]: Saloni Dunlap - Smitaan was ineffective. Pt requesting for Compazine to help with nausea -Kristina [phone]
[2019-11-05 11:00] VITALS: BP 136/86
--- NOTE | 2019-11-05 11:14 | NUR ---
PAGER ID: [phone] MESSAGE: [phone]: Salo Natarajan: Pao ineffective, may pt receive another antiemetic? -Kristina [phone]
[2019-11-05 11:49] LABS: ALANINE AMINOTRANSFERASE 31 U/L (12-78); ALBUMIN/GLOBULIN RATIO 1.2 (1.1-1.5); ALKALINE PHOSPHATASE 61 IU/L (46-116); ANION GAP 8 (8-16); ASPARTATE AMINO TRANSFERASE 29 U/L (10-37); BILIRUBIN,TOTAL 0.8 MG/DL (0.1-1.0); BLOOD UREA NITROGEN 12 MG/DL (7-18); BUN/CREATININE RATIO 12.5 (5.4-32.0); CALCIUM 7.9 MG/DL (8.5-10.1); CHLORIDE 102 MMOL/L (99-107); CREATININE 0.96 MG/DL (0.60-1.10); GLUCOSE 253 MG/DL (70-104); POTASSIUM 3.8 MMOL/L (3.5-5.1); SODIUM 138 MMOL/L (135-145); TOTAL CARBON DIOXIDE 27.8 MMOL/L (24-32); TOTAL PROTEIN 5.6 G/DL (6.4-8.2); eGFR > 90 ML/MIN
[2019-11-05] MEDS ORDERED: metoclopramide 5 mg/ml inj IV PRN (12:40)
[2019-11-05 14:55] LABS: ALANINE AMINOTRANSFERASE 26 U/L (12-78); ALBUMIN 3.1 G/DL (3.4-5.0); ALBUMIN/GLOBULIN RATIO 1.2 (1.1-1.5); ALKALINE PHOSPHATASE 59 IU/L (46-116); ANION GAP 11 (8-16); ASPARTATE AMINO TRANSFERASE 11 U/L (10-37); BILIRUBIN,TOTAL 0.8 MG/DL (0.1-1.0); BLOOD UREA NITROGEN 12 MG/DL (7-18); BUN/CREATININE RATIO 11.7 (5.4-32.0); CALCIUM 8.2 MG/DL (8.5-10.1); CHLORIDE 101 MMOL/L (99-107); CREATININE 1.03 MG/DL (0.60-1.10); GLUCOSE 263 MG/DL (70-104); POTASSIUM 3.8 MMOL/L (3.5-5.1); SODIUM 137 MMOL/L (135-145); TOTAL CARBON DIOXIDE 24.8 MMOL/L (24-32); TOTAL PROTEIN 5.6 G/DL (6.4-8.2); eGFR 88 ML/MIN
[2019-11-05 15:00] VITALS: BP 139/85
[2019-11-05] MEDS: HYDROcodone/acetaminophen 5mg/325mg tablet PO PRN (15:01)
[2019-11-05 18:00] VITALS: BP 127/75
--- NOTE | 2019-11-05 18:24 | NUR ---
Patient in room PCU 3021. I have received report from Kristina PROCTOR and had the opportunity to ask questions and assume patient care.
--- NOTE | 2019-11-05 18:25 | NUR ---
Problems reprioritized. Patient report given, questions answered & plan of care reviewed with ESTHELA Rodriguez.
[2019-11-05 18:30] LABS: ALANINE AMINOTRANSFERASE 23 U/L (12-78); ALBUMIN 3.1 G/DL (3.4-5.0); ALBUMIN/GLOBULIN RATIO 1.2 (1.1-1.5); ALKALINE PHOSPHATASE 63 IU/L (46-116); ANION GAP 15 (8-16); ASPARTATE AMINO TRANSFERASE 19 U/L (10-37); BILIRUBIN,TOTAL 1.1 MG/DL (0.1-1.0); BLOOD UREA NITROGEN 13 MG/DL (7-18); BUN/CREATININE RATIO 12.5 (5.4-32.0); CALCIUM 8.1 MG/DL (8.5-10.1); CHLORIDE 98 MMOL/L (99-107); CREATININE 1.04 MG/DL (0.60-1.10); GLUCOSE 334 MG/DL (70-104); POTASSIUM 4.6 MMOL/L (3.5-5.1); SODIUM 135 MMOL/L (135-145); TOTAL CARBON DIOXIDE 22.4 MMOL/L (24-32); TOTAL PROTEIN 5.7 G/DL (6.4-8.2); eGFR 87 ML/MIN
[2019-11-05] MEDS: insulin glargine (Lantus) pen - multi-dose SQ SCH (21:01)
[2019-11-05 22:00] VITALS: BP 121/79
[2019-11-05 22:25] LABS: ALANINE AMINOTRANSFERASE 25 U/L (12-78); ALBUMIN 2.9 G/DL (3.4-5.0); ALBUMIN/GLOBULIN RATIO 1.1 (1.1-1.5); ALKALINE PHOSPHATASE 60 IU/L (46-116); ANION GAP 10 (8-16); ASPARTATE AMINO TRANSFERASE 17 U/L (10-37); BLOOD UREA NITROGEN 15 MG/DL (7-18); CALCIUM 7.9 MG/DL (8.5-10.1); CHLORIDE 100 MMOL/L (99-107); CREATININE 1.07 MG/DL (0.60-1.10); GLUCOSE 231 MG/DL (70-104); POTASSIUM 4.1 MMOL/L (3.5-5.1); SODIUM 136 MMOL/L (135-145); TOTAL CARBON DIOXIDE 25.7 MMOL/L (24-32); TOTAL PROTEIN 5.5 G/DL (6.4-8.2); eGFR 84 ML/MIN
[2019-11-06 02:00] VITALS: BP 131/71
[2019-11-06 03:44] LABS: BASOPHILS # (AUTO) 0.1 X10'3 (0-0.2); BASOPHILS % (AUTO) 1.4 % (0-1); EOSINOPHILS % (AUTO) 0.5 % (0-6); HEMATOCRIT 38.5 % (42.0-52.0); HEMOGLOBIN 13.1 g/dl (14.0-17.9); LYMPHOCYTES # (AUTO) 2.7 X10'3 (1.1-4.8); LYMPHOCYTES % (AUTO) 35.1 % (21-51); MEAN CORPUSCULAR HEMOGLOBIN 29.5 PG (27.0-31.0); MEAN CORPUSCULAR HGB CONC 33.9 g/dL (33.0-36.5); MEAN CORPUSCULAR VOLUME 86.9 FL (78-98); MEAN PLATELET VOLUME 8.2 FL (7.4-10.4); MONOCYTES # (AUTO) 0.6 X10'3 (0-0.9); MONOCYTES % (AUTO) 8.2 % (2-12); NEUTROPHILS # (AUTO) 4.3 X10'3 (1.8-7.7); NEUTROPHILS % (AUTO) 54.8 % (42-75); PLATELET COUNT 250 X10'3 (140-440); RED BLOOD COUNT 4.43 X10'6 (4.70-6.10); RED CELL DISTRIBUTION WIDTH 12.8 % (11.5-14.5); WHITE BLOOD COUNT 7.7 X10'3 (4.5-11.0)
[2019-11-06 04:01] LABS: ALANINE AMINOTRANSFERASE 23 U/L (12-78); ALBUMIN 2.9 G/DL (3.4-5.0); ALBUMIN/GLOBULIN RATIO 1.2 (1.1-1.5); ALKALINE PHOSPHATASE 60 IU/L (46-116); ANION GAP 4 (8-16); ASPARTATE AMINO TRANSFERASE 12 U/L (10-37); BILIRUBIN,TOTAL 0.9 MG/DL (0.1-1.0); BLOOD UREA NITROGEN 13 MG/DL (7-18); BUN/CREATININE RATIO 11.9 (5.4-32.0); CALCIUM 8.1 MG/DL (8.5-10.1); CHLORIDE 104 MMOL/L (99-107); CREATININE 1.09 MG/DL (0.60-1.10); GLUCOSE 124 MG/DL (70-104); MAGNESIUM 1.8 MG/DL (1.5-2.4); POTASSIUM 3.5 MMOL/L (3.5-5.1); SODIUM 139 MMOL/L (135-145); TOTAL CARBON DIOXIDE 30.6 MMOL/L (24-32); TOTAL PROTEIN 5.3 G/DL (6.4-8.2); eGFR 82 ML/MIN
--- NOTE | 2019-11-06 06:08 | NUR ---
Patient in room PCU 3021. I have received report from ESTHELA Rodriguez and had the opportunity to ask questions and assume patient care.
--- NOTE | 2019-11-06 06:27 | NUR ---
Problems reprioritized. Patient report given, questions answered & plan of care reviewed with Kristina PROCTOR.
[2019-11-06 06:37] LABS: ALANINE AMINOTRANSFERASE 22 U/L (12-78); ALBUMIN 2.9 G/DL (3.4-5.0); ALBUMIN/GLOBULIN RATIO 1.2 (1.1-1.5); ALKALINE PHOSPHATASE 55 IU/L (46-116); ANION GAP 5 (8-16); ASPARTATE AMINO TRANSFERASE 14 U/L (10-37); BILIRUBIN,TOTAL 0.9 MG/DL (0.1-1.0); BLOOD UREA NITROGEN 13 MG/DL (7-18); BUN/CREATININE RATIO 13.1 (5.4-32.0); CALCIUM 8.1 MG/DL (8.5-10.1); CHLORIDE 104 MMOL/L (99-107); CREATININE 0.99 MG/DL (0.60-1.10); GLUCOSE 93 MG/DL (70-104); POTASSIUM 3.5 MMOL/L (3.5-5.1); SODIUM 140 MMOL/L (135-145); TOTAL PROTEIN 5.3 G/DL (6.4-8.2); eGFR > 90 ML/MIN
[2019-11-06 07:00] VITALS: BP 151/66
[2019-11-06] MEDS: K and/or MAG REPLACEMENT MC SCH ×2 (08:00→20:00)
[2019-11-06 10:07] LABS: ALANINE AMINOTRANSFERASE 22 U/L (12-78); ALBUMIN/GLOBULIN RATIO 1.2 (1.1-1.5); ALKALINE PHOSPHATASE 61 IU/L (46-116); ANION GAP 4 (8-16); ASPARTATE AMINO TRANSFERASE 13 U/L (10-37); BLOOD UREA NITROGEN 13 MG/DL (7-18); BUN/CREATININE RATIO 12.6 (5.4-32.0); CALCIUM 8.2 MG/DL (8.5-10.1); CHLORIDE 104 MMOL/L (99-107); CREATININE 1.03 MG/DL (0.60-1.10); GLUCOSE 69 MG/DL (70-104); POTASSIUM 3.4 MMOL/L (3.5-5.1); SODIUM 139 MMOL/L (135-145); TOTAL CARBON DIOXIDE 30.8 MMOL/L (24-32); TOTAL PROTEIN 5.5 G/DL (6.4-8.2); eGFR 88 ML/MIN
--- NOTE | 2019-11-06 10:47 | NUR ---
New orders from Meeta to discontinue left EJ and for a BMP
[2019-11-06 11:00] VITALS: BP 145/100
[2019-11-06 12:19] VITALS: BP 124/87
[2019-11-06] MEDS: HYDROcodone/acetaminophen 5mg/325mg tablet PO PRN ×2 (12:35→19:42)
[2019-11-06] MEDS: insulin Lispro (HumaLOG) vial - multi-dose SQ SCH ×2 (14:12→19:44)
[2019-11-06 15:00] VITALS: BP 132/83
[2019-11-06 15:26] LABS: ALANINE AMINOTRANSFERASE 22 U/L (12-78); ALBUMIN 2.9 G/DL (3.4-5.0); ALBUMIN/GLOBULIN RATIO 1.3 (1.1-1.5); ALKALINE PHOSPHATASE 59 IU/L (46-116); ANION GAP 8 (8-16); ASPARTATE AMINO TRANSFERASE 14 U/L (10-37); BILIRUBIN,TOTAL 0.7 MG/DL (0.1-1.0); BLOOD UREA NITROGEN 16 MG/DL (7-18); BUN/CREATININE RATIO 14.5 (5.4-32.0); CALCIUM 7.9 MG/DL (8.5-10.1); CHLORIDE 99 MMOL/L (99-107); GLUCOSE 281 MG/DL (70-104); POTASSIUM 3.8 MMOL/L (3.5-5.1); SODIUM 135 MMOL/L (135-145); TOTAL CARBON DIOXIDE 28.1 MMOL/L (24-32); TOTAL PROTEIN 5.2 G/DL (6.4-8.2); eGFR 82 ML/MIN
[2019-11-06] MEDS ORDERED: METO10TA3 PO (17:32)
--- NOTE | 2019-11-06 18:18 | NUR ---
Pt stable for discharge per MD order. Provided discharge instructions and education and answered any questions/concerns pt may have. Medications sent to [facility] pharmacy in [place]. Tele monitor removed. PIVs removed, cannula intact. Pt awaiting discharge for friend/family to come pick him up.
--- NOTE | 2019-11-06 18:20 | NUR ---
Problems reprioritized. Patient report given, questions answered & plan of care reviewed with ESTHELA Tapia.
[2019-11-06 19:12] LABS: ALANINE AMINOTRANSFERASE 22 U/L (12-78); ALBUMIN 3.2 G/DL (3.4-5.0); ALBUMIN/GLOBULIN RATIO 1.2 (1.1-1.5); ALKALINE PHOSPHATASE 69 IU/L (46-116); ANION GAP 6 (8-16); ASPARTATE AMINO TRANSFERASE 16 U/L (10-37); BILIRUBIN,TOTAL 0.9 MG/DL (0.1-1.0); BLOOD UREA NITROGEN 17 MG/DL (7-18); BUN/CREATININE RATIO 15.2 (5.4-32.0); CHLORIDE 100 MMOL/L (99-107); CREATININE 1.12 MG/DL (0.60-1.10); GLUCOSE 263 MG/DL (70-104); SODIUM 135 MMOL/L (135-145); TOTAL CARBON DIOXIDE 29.4 MMOL/L (24-32); TOTAL PROTEIN 5.8 G/DL (6.4-8.2); eGFR 80 ML/MIN
[2019-11-06 19:13] LABS: POTASSIUM 3.9 MMOL/L (3.5-5.1)
--- NOTE | 2019-11-06 20:45 | NUR ---
Patient had no IV or Tele box on him. A&Ox4 and vitals stable. He was able to shower himself and was given humolog for blood sugar coverage and dinner coverage. His ride was able to come at 2029. An aide ambulated him down to the lobby for sheepskin pickler.
== END 2019-11-06 20:31 | disposition home or self-care (01) | DRG 420 ==
LOC: ER 02:09 → ED HOLD 02:50 → PCU 3S 04:40
PROVIDERS: ADMIT Family Medicine; ATTEND Family Medicine
DX: E13.10 Other specified diabetes mellitus with ketoacidosis without coma (principal); D72.823 Leukemoid reaction; E87.6 Hypokalemia; F12.90 Cannabis use, unspecified, uncomplicated; Z20.828 Contact with and (suspected) exposure to other viral communicable diseases; R00.0 Tachycardia, unspecified; F15.90 Other stimulant use, unspecified, uncomplicated; F17.210 Nicotine dependence, cigarettes, uncomplicated; Z79.4 Long term (current) use of insulin; Z90.49 Acquired absence of other specified parts of digestive tract; Z91.14 Patient's other noncompliance with medication regimen; Z88.8 Allergy status to other drugs, medicaments and biological substances; Z79.899 Other long term (current) drug therapy
CPT/HCPCS: 36415; 36600; 80048; 80053; 82803; 82948; 83735; 84100; 85018; 85025; 87081; 87635; 93005; 96374; 96375; 99285; G0378; J1200; J1815; J2060; J2405; J2765; J3480; J7030